=== PATIENT | male | born 1935 | race Hispanic/Latino ===

== ENCOUNTER → 2020-07-14 | Day surgery (SDC) | payer MEDICARE, OTHER ==
[2020-07-11 11:26] LABS: BASOPHILS % 0.5 % (0.0-1.0); EOSINOPHILS # (AUTO) 0.3 (0.0-0.4); EOSINOPHILS % 4.5 % (0.0-6.0); HEMATOCRIT 35.7 % (38.2-49.6); HEMOGLOBIN 11.2 g/dL (14.0-18.0); LYMPHOCYTES # (AUTO) 1.5 (1.0-3.2); LYMPHOCYTES % 20.4 % (18.0-39.1); MEAN CORPUSCULAR HEMOGLOBIN 29.6 pg (28-32); MEAN CORPUSCULAR HGB CONC 31.4 g/dL (31-35); MEAN CORPUSCULAR VOLUME 94.4 fL (81-99); MONOCYTES # (AUTO) 0.6 (0.2-0.8); MONOCYTES % 7.8 % (4.4-11.3); NEUTROPHILS # (AUTO) 4.8 (2.1-6.9); NEUTROPHILS % 66.4 % (38.7-80.0); PLATELET COUNT 267 x10e3/uL (140-360); RED BLOOD COUNT 3.78 x10e6/uL (4.3-5.7)
[~2020-07-14] MED LIST: AMLODIPINE BESY10 MG PO; ASPIRIN81 MG; B-12; B-123000 MCG; DORZOLAMIDE-TIM10 ML OP; DOXAZOSIN MESYLA2 MG PO; FENTANYL CITRATE/PF 100MCG/2 ML INJ ONE; FERROUS SULFAT325 MG; FOLIC ACID; GLUCOSAMINE1000 MG; HYOSCYAMINE 0.125 MG TAB ONE; LIDOCAINE HCL 2% LOCAL INJ 5 ML SDV VIAL INJ ONE; MIDAZOLAM HCL 2 MG/2 ML VIAL ONE; PANTOPRAZOLE SO40 MG PO; PROPOFOL IV EMULSION 10 MG/ML 20 ML VIAL ONE; VITAMIN C60 MG
[2020-07-14 15:45] VITALS: BP 130/65
--- NOTE | 2020-07-14 16:10 | Operative Report ---
DATE OF PROCEDURE: 07/14/2020 SURGEON: Wagner Forman MD PROCEDURES: EGD with biopsies and colonoscopy with biopsies. INDICATIONS FOR EGD: History of GERD, status post Ashley-en-Y, decrease p.o. intake, weight loss. INDICATIONS FOR COLONOSCOPY: Surveillance colonoscopy, personal history of colon polyps, marked weight loss. MEDICATIONS: The patient was done under MAC, please see anesthesiologist's note. PROCEDURE IN DETAIL: With the patient in left lateral decubitus position, a flexible fiberoptic Olympus gastroscope was introduced into the esophagus under direct visualization without any difficulty. The esophagus appeared to be within normal limits. The scope was then advanced with ease into the stomach and the patient is status post Ashley-en-Y, anastomosis was intact and patent. The mucosa overlying the gastric stump revealed some patchy mild inflammatory changes and biopsies were obtained. The scope was then retroflexed in the gastric stump and the cardia appeared to be within normal limits. The scope was then straightened out, it was subsequently withdrawn. The patient tolerated the procedure well. IMPRESSION: 1. Normal esophagus. 2. Status post Ashley-en-Y; anastomosis intact and patent. 3. Gastric stomach, gastritis, biopsied, biopsies sent to stain for H. pylori. PLAN: 1. Follow up histology. 2. Increase Protonix to 40 mg one p.o. a.c. b.i.d. DESCRIPTION OF PROCEDURE: The patient was then turned around after adequate lubrication of the anal canal, a flexible fiberoptic Olympus colonoscope was inserted into the rectum with ease and advanced all the way to the cecum; it was then withdrawn slowly and mucosa overlying the cecum appeared to be within normal limits. The ileocecal valve was intubated and the scope was advanced into the terminal ileum; biopsies were obtained. The scope was then withdrawn back into the colon; it was then withdrawn slowly and mucosa overlying the ascending, transverse, descending, sigmoid, and rectum grossly appeared to be within normal limits. The scope was then retroflexed into the distal rectum and moderate-sized internal hemorrhoids were noted, none of which were actively bleeding. The scope was then straightened out, it was subsequently withdrawn. The patient tolerated the procedure well. IMPRESSION: Internal hemorrhoids, none actively bleeding. PLAN: 1. Followup histology. 2. The patient will need small bowel series if not done. MD KRISTYN Cantu/BINH /[id number] cc: Jam Glynn
[2020-07-14 16:17] LABS: AMYLASE 83 U/L (25-125); LIPASE 15 U/L (8-78)
== END | disposition home or self-care (01) ==
LOC: OR 10:41
PROVIDERS: ATTEND Internal Medicine Gastroenterology
DX: R63.4 Abnormal weight loss (principal); Z86.010 Personal history of colon polyps; K31.7 Polyp of stomach and duodenum; K29.70 Gastritis, unspecified, without bleeding; K51.90 Ulcerative colitis, unspecified, without complications; K86.1 Other chronic pancreatitis; K64.8 Other hemorrhoids; Z98.84 Bariatric surgery status; I10 Essential (primary) hypertension; D64.9 Anemia, unspecified; Z01.810 Encounter for preprocedural cardiovascular examination; Z01.812 Encounter for preprocedural laboratory examination; Z01.818 Encounter for other preprocedural examination; Z11.59 Encounter for screening for other viral diseases; Z86.19 Personal history of other infectious and parasitic diseases; Z87.891 Personal history of nicotine dependence
CPT/HCPCS: 36415 ×2; 43239; 45380; 82150; 83690; 85025; 93005; J2001; J2704; U0002; 45378

== ENCOUNTER → 2022-02-21 | Outpatient (CLI) | payer MEDICARE ==
[~2022-02-21] MED LIST changes: -FENTANYL CITRATE/PF 100MCG/2 ML INJ ONE; -HYOSCYAMINE 0.125 MG TAB ONE; +IOPAMIDOL 370 MG/ML 200 ML INFUS..BTL INJ ONE; -LIDOCAINE HCL 2% LOCAL INJ 5 ML SDV VIAL INJ ONE; -MIDAZOLAM HCL 2 MG/2 ML VIAL ONE; -PROPOFOL IV EMULSION 10 MG/ML 20 ML VIAL ONE; +SODIUM CHLORIDE 0.9% 50ML 50 ML ONE
[2022-02-21 08:55] LABS: CREATININE, SERUM 1.12 mg/dL (0.72-1.25)
== END ==
LOC: CT 08:02
PROVIDERS: ATTEND Internal Medicine Cardiovascular Disease
DX: I71.4 Abdominal aortic aneurysm, without rupture (principal)
CPT/HCPCS: 36415; 74174; 82565; 84520; Q9967